=== PATIENT | female | born 1945 | race Caucasian/White ===

== ENCOUNTER → 2017-09-09 | Outpatient (CLI) | payer MEDICARE, OTHER ==
[~2017-09-09] MED LIST: LEVO25TA55 PO
[2017-09-09 12:49] LABS: CREATININE 0.8 mg/dL (0.6-1.0); GFR 70.7
[2017-09-09 23:12] LABS: VITAMIN D25(OH)TOTAL 24.7 ng/mL (30.0-100.0)
== END | disposition home or self-care (01) ==
LOC: LAB 12:14
PROVIDERS: ATTEND Psychiatry & Neurology Neurology
DX: R20.2 Paresthesia of skin (principal)
CPT/HCPCS: 36415; 82306; 82310; 82565; 82607; 84520; 86141

== ENCOUNTER → 2022-01-21 | Outpatient (CLI) | payer MEDICARE, OTHER ==
[~2022-01-21] MED LIST changes: +ATOR40TA59 PO; +CELE200C PO; +GABA600T7 PO; +LOSA1TAB19 PO
[2022-01-21 09:27] LABS: BASO % 1 % (0-3); EOS # 0.1 x10^3/uL (0.0-0.7); EOS % 2 % (0-3); HEMATOCRIT 38.2 % (36.0-47.0); HEMOGLOBIN 12.3 g/dL (12.0-15.5); LYMPH # 0.7 x10^3/uL (1.0-4.8); LYMPH % 11 % (24-48); MEAN CORPUSCULAR HEMOGLOBIN 30 pg (25-35); MEAN CORPUSCULAR HGB CONC 32 g/dL (31-37); MEAN CORPUSCULAR VOLUME 92 fL (79-100); MONO # 0.6 x10^3/uL (0.0-1.1); MONO % 9 % (0-9); NEUT # 5.2 x10^3/uL (1.8-7.7); NEUT % 77 % (31-73); PLATELET COUNT 284 x10^3/uL (140-400); RED BLOOD COUNT 4.15 x10^6/uL (3.50-5.40); RED CELL DISTRIBUTION WIDTH 13.9 % (11.5-14.5); WHITE BLOOD COUNT 6.7 x10^3/uL (4.0-11.0)
[2022-01-21 09:40] LABS: PROTHROMBIN TIME PATIENT 13.6 SEC (11.7-14.0)
[2022-01-21 09:50] LABS: ALBUMIN 3.9 g/dL (3.4-5.0); CALCIUM 9.3 mg/dL (8.5-10.1); GFR 54.1; POTASSIUM 4.5 mmol/L (3.5-5.1)
--- NOTE | 2022-01-21 12:43 | EKG ---
[facility] [address] [place] [address] Test Date: 2022-01-21 Test Time: 12:39:06 Pat Name: CRISTI MUÑOZ Department: Room: Gender: F [employer]: JG : [id number] Requested By: ROD BARNETT Order Number: [id number] Reading MD: Dung Martinez Measurements Intervals [place] Rate: 72 P: 27 NE: 156 QRS: 4 QRSD: 88 T: 14 QT: 386 QTc: 424 Interpretive Statements SINUS RHYTHM ATRIAL PREMATURE COMPLEX(ES) OTHERWISE NORMAL ECG Electronically Signed On 01-22-2022 15:41:28 CDT by Dung Martinez
--- NOTE | 2022-01-21 14:00 | RAD ---
EXAM: Chest, 2 views. HISTORY: Preoperative evaluation. COMPARISON: None. FINDINGS: 2 views of the chest are obtained. There is no infiltrate, pleural effusion or pneumothorax . The heart is normal in size. There is lumbar fusion instrumentation at the inferior margin of the f [id number]. There is degenerative change at the lower thoracic levels. IMPRESSION: No acute pulmonary finding. Electronically signed by: Kori Reis MD (01/21/2022 1:58 PM) [id number]
[2022-01-22 03:17] LABS: HEMOGLOBIN A1C 5.5 % (4.8-5.6)
== END ==
LOC: SURGPAT 12:42
PROVIDERS: ATTEND Orthopaedic Surgery
DX: Z01.818 Encounter for other preprocedural examination (principal); I10 Essential (primary) hypertension; M17.0 Bilateral primary osteoarthritis of knee; M47.814 Spondylosis without myelopathy or radiculopathy, thoracic region
CPT/HCPCS: 36415; 71046; 80048; 82040; 82306; 83036; 85025; 85610; 85651; 85730; 87641; 93005

== ENCOUNTER 2022-02-11 07:25 | Inpatient (IN) | payer MEDICARE, OTHER ==
[2022-01-23 12:56] VITALS: BP 135/83
[~2022-02-11] VITALS: Ht 167.6 cm; Wt 97.0 kg
[2022-02-11] VITALS (12 sets, daily range): BP systolic 99–131; BP diastolic 55–85
[~2022-02-11 07:25] MED LIST changes: +ACETAMINOPHEN 500 MG TABLET PO PRN; +GABAPENTIN 300 MG CAPSULE. PO PRN; +HYDROmorphone 2 MG/ML INJ. IVP PRN; +IV RINGERS,LACTATED 1000ML 1,000 ML IV SCH; +MELOXICAM 7.5 MG TABLET PO PRN; +MORPHINE SULFATE 2 MG/ML INJ. IVP PRN; +PROCHLORPERAZINE 10 MG/2 ML VIAL. IVP PRN; +TRANEXAMIC ACID in NS IVPB 50 ML INJ ONE; +TV=62ml MORPHINE 5 MG, KETOROLAC 30 MG, ROPIV, EPI INT ART ONE; +fentaNYL PF VIAL 100 MCG/2 ML VIAL IVP PRN
[2022-02-11] MEDS ORDERED: TRANEXAMIC ACID in NS IVPB 50 ML INJ ONE (08:00)
[2022-02-11] MEDS ORDERED: ONDANSETRON PF 4 MG/2 ML VIAL. ONE (08:08)
[2022-02-11] MEDS ORDERED: LIDOCAINE 2% PF 5 ML VIAL. ONE (08:08)
[2022-02-11] MEDS ORDERED: PROPOFOL 10 MG/ML (20ML) VIAL. IV ONE (08:08)
[2022-02-11] MEDS ORDERED: ROCURONIUM 50 MG/5 ML VIAL. ONE (08:08)
[2022-02-11] MEDS ORDERED: DEXAMETHASONE SOD PHOS 4 MG/ML VIAL ONE (08:08)
[2022-02-11] MEDS ORDERED: NEOSTIGMINE METHYLSULFATE 5 MG/5 ML SYRINGE. ONE (08:09)
[2022-02-11] MEDS ORDERED: MIDAZOLAM HCL/PF 2 MG/2 ML VIAL. ONE (08:09)
[2022-02-11] MEDS ORDERED: fentaNYL PF VIAL 100 MCG/2 ML VIAL ONE (08:09)
[2022-02-11] MEDS ORDERED: GLYCOPYRROLATE 1 MG/5 ML VIAL. ONE (08:10)
[2022-02-11] MEDS ORDERED: SEVOFLURANE 61 TO 120 MINUTES. IH ONE (08:18)
[2022-02-11] MEDS ORDERED: TRANEXAMIC ACID 1,000 MG/10 ML VIAL. ONE (08:43)
[2022-02-11] MEDS ORDERED: TRANEXAMIC ACID in NS IVPB 50 ML ONE (08:43)
[2022-02-11] MEDS ORDERED: HYDROmorphone 2 MG/ML INJ. ONE (09:40)
[2022-02-11] MEDS ORDERED: MORPHINE SULFATE 2 MG/ML INJ. IVP PRN (10:30)
[2022-02-11] MEDS ORDERED: METOCLOPRAMIDE HCL 10 MG/2 ML VIAL. IVP PRN (10:30)
[2022-02-11] MEDS ORDERED: 0.9 % SODIUM CHLORIDE 10 ML DISP.SYRIN. IV PRN (10:30)
[2022-02-11] MEDS ORDERED: fentaNYL PF VIAL 100 MCG/2 ML VIAL IVP PRN (10:30)
[2022-02-11] MEDS ORDERED: IV DEXTROSE 5% 250 ML BAG. IV PRN (10:30)
[2022-02-11] MEDS ORDERED: DEXTROSE 50% 25 GM / 50ML DISP.SYRIN. IV PRN (10:30)
[2022-02-11] MEDS ORDERED: diphenhydrAMINE 50 MG/ML VIAL IVP PRN (10:30)
[2022-02-11] MEDS ORDERED: oxyCODONE IR 5 MG TABLET PO PRN (10:30)
[2022-02-11] MEDS ORDERED: ZOLPIDEM 5 MG TABLET. PO PRN (10:30)
[2022-02-11] MEDS ORDERED: PROCHLORPERAZINE 5 MG TABLET. PO PRN (10:30)
[2022-02-11] MEDS ORDERED: CALCIUM CARBONATE 500 MG TAB.CHEW PO PRN (10:30)
--- NOTE | 2022-02-11 10:30 | PDOC4 ---
OPERATIVE NOTE Date: Date: Feb 11, 2022 Pre-Op Diagnosis: Severe degenerative joint disease left knee Post-Op Diagnosis: Same Procedure Performed: Left total knee arthroplasty with anchor placement patella tendon Surgeon: Rianna Anesthesia Type: General Blood Loss: 50 cc Specimans Obtained: Bone and soft tissue left knee Findings: Prior to closure of the knee replacement there was noted to be a small avulsion of the tibial insertion of the patella tendon approximately 20 to 25% therefore for full repair 1 four 5 suture anchor was placed within the area of the insertion of the tibial tendon this was tied. Following this the normal closure was performed. Complications: Small avulsion patella tendon 20% ROD BARNETT Jr. DO Feb 11, 2022 10:30
[2022-02-11] MEDS ORDERED: SCOPOLAMINE 1.5MG PATCH. TD ONE ×2 (11:30→13:13)
[2022-02-11] MEDS ORDERED: PROCHLORPERAZINE 10 MG/2 ML VIAL. ONE (11:31)
[2022-02-11] MEDS: ONDANSETRON ODT 4 MG TAB.RAPDIS. PO SCH ×3 (12:00→23:28)
[2022-02-11] MEDS: ONDANSETRON PF 4 MG/2 ML VIAL. IVP SCH ×4 (12:00→23:28)
--- NOTE | 2022-02-11 12:01 | RAD ---
Left Knee: 02/11/2022 10:37 AM. Reason for study: Postoperative. Comparison: None. Technique: Two views of the left knee are obtained. Findings: There are findings consistent with recent left total knee arthroplasty, with hardware in good alignme nt and position. Immediate postsurgical changes within the regional soft tissues are noted. No compli cations are evident. Vascular calcifications are noted. Impression: Status post left total knee arthroplasty. Electronically signed by: Catherine Montilla MD (02/11/2022 11:59 AM) [id number]
--- NOTE | 2022-02-11 12:36 | HP ---
DATE OF SERVICE: 02/11/2022 ADMIT DATE: 02/11/2022 PREOPERATIVE HISTORY AND PHYSICAL REASON FOR EVALUATION: Preop for left total knee arthroplasty. BRIEF HISTORY: The patient is currently a 76-year-old female who complains of significant left knee pain. She actually has bilateral knee pain, but is worse on the left than on the right. She has already undergone ice, elevation, also has been under viscosupplementation, steroid injections, etc. Nothing is helping significantly at this point. She has already had bilateral hip replacements and now has significant pain and issues with her left knee causing problems with activities of daily living. REVIEW OF SYSTEMS: Unremarkable other than her current persistent bilateral knee pain. PAST MEDICAL HISTORY: Remarkable for hypertension, hypothyroidism, diffuse degenerative joint disease, dyslipidemia, mild carpal tunnel, anxiety and glaucoma. PAST SURGICAL HISTORY: , hip replacement, left and right lumbar decompression and a left toe surgery. FAMILY HISTORY: Remarkable for cancer as well as HI. SOCIAL HISTORY: The patient has never been a tobacco user of any kind. No alcohol use at all at this point. MEDICATIONS: Include Losartan/HCTZ, Arvostatin, Celebrex, gabapentin, levothyroxine, sodium. MEDICATION ALLERGIES: None. PHYSICAL EXAMINATION: Today, the patient is 200 pounds and is 66 inches tall. She does have bilateral knee pain with examination, there is more swelling in the left knee than the right knee. She has full extension on the right. There is 5 degrees lacking full extension on the left and evaluation of 115 degrees of flexion on the left. No instability is noted in the varus, valgus or AP plane. There is apprehension of the patellofemoral joint, although it does track appropriately at this point. There are no significant changes in evaluation of the knees far as atrophy of musculature bilaterally. Distal neurovascular status is fully intact. IMPRESSION: Degenerative joint disease, bilateral; left greater than right. PLAN: At this time, I have already gone over the risks, complications as well as benefits and expectations of surgery, postoperative protocol and followup. We have done that again. We will proceed with left total knee replacement when she is talked with anesthesia and is ready to be undergoing the procedure. SABA/RASTA DR: Obed TID: [id number]
--- NOTE | 2022-02-11 14:42 | OP ---
DATE OF SURGERY: 02/11/2022 PREOPERATIVE DIAGNOSIS: Severe degenerative joint disease, left knee. POSTOPERATIVE DIAGNOSIS: Severe degenerative joint disease, left knee. PROCEDURE: Left total knee arthroplasty. SURGEON: Nathaniel Blanca Jr, DO SONOGRAPHY TECHNICIAN: Vish Marc. ANESTHESIA: General. COMPLICATIONS: None. ESTIMATED BLOOD LOSS: 50 mL. COMPONENTS: A Gasper cemented left total knee arthroplasty with a 9 mm tibial polyethylene and a size 4 femur, size 4 tibia and then a size 32 patella. DESCRIPTION OF PROCEDURE: The patient was taken to the operative suite, given a general anesthetic. Left lower extremity was then prepped and draped in a sterile fashion. Incision was made through skin and subcutaneous tissues down to the extensor mechanism. Superficial bleeding was coagulated using a Bovie knife. A medial parapatellar incision was then made. After exposure, there was noted to be severe degenerative joint disease in all compartments of the knee. The patella was then everted, measured and cut to the appropriate size, which was a 32. This was measured appropriately. The drill holes were made through the guide for the component. The knee was then taken into a flexed position. Retractors were placed medially and laterally. The F1 guide was then placed on the distal femur. A drill was used for the site for the cartilage removal and then using a curved curette, the cartilage was removed from the distal femur and then the F2 guide was placed in this position. The drill was placed through the F2 guide on the medial and lateral femoral condyles and held with pins. This was also held for the distal cut on the proximal aspect of the femur anteriorly with 2 drill pins followed by a locking pin as well. The cut was then made in the distal femur. This was noted to be a good flush cut. The pins were then removed from this components trial and then the pins were placed in the femoral sites on the medial and lateral femoral condyles. The next guide was then placed on the distal femur and held flush well. Two more pins were placed and then the anterior and posterior chamfer cuts and drill holes were made at this point. Then, these guides were removed. The final femoral guide was then put in place and held appropriately where the finishing cuts were made along the femoral condyle medially and laterally and then this was removed. Attention was then directed to the tibia. The remnants of the medial and lateral menisci as well as the ACL were removed. The PCL remained completely intact at this point. After retracting medially, laterally and posteriorly, the tibial guide was placed in appropriate position and again, a curette was used to remove the remaining cartilage on the proximal tibia. Tibial guide was then held with pins, two straight pins and then one locking pin and then the cut was made for the tibia. This was released of its soft tissue and removed in its entirety and the trials were placed on the femur and tibia with a 6A tibial tray insert. As this was trialled, this was noted to be very stable throughout the arc of motion. This was stable in flexion and equal in flexion and extension throughout the arc of motion. There was no instability noted at any point. This was marked for rotation on the tibial side of the joint and after this was held with pins, the drill and the keel were placed the appropriate depth for this. This was then copiously irrigated on the back table while cement was being mixed. After this was suctioned dry, cement was placed on cut surfaces. The tibia was impacted first, followed by the femur. This was held with the trial polyethylene in extension until hardening of cement and cement was placed on the patella, which was held with a patellar clamp until hardening of cement. After excess cement was then removed, this was taken through motion. This was noted to be the best stable situation; therefore, the trials were removed and the actual medial 6 was placed and the lateral A was placed at this point. This was noted again to be stable; therefore, tourniquet was deflated. No excessive bleeding was noted. The medial parapatellar incision was then closed using the running locking barbed suture. Then, this was taken through range of motion and noted to be sealed off completely. The superficial tissues and skin were reapproximated. Sterile dressing was applied. This was all done after local was placed within the depths of the capsular region of the knee. The patient was then taken from the operative bed to the postoperative bed, taken to the PACU in stable condition. INDRA/MARK/EDYTA DR: Obed TID: [id number]
[2022-02-11] MEDS: FERROUS SULFATE 325 MG TABLET. PO SCH (17:49)
[2022-02-11] MEDS: IV NORMAL SALINE 1000ML BAG 1,000 ML IV SCH (17:51)
--- NOTE | 2022-02-11 19:09 | PDOC1 ---
History and Physical Date of Admission Date of Admission DATE: 02/11/22 TIME: 19:05 Source Source: Chart review, Patient History of Present Illness History of Present Illness Admit for complaint of significant left knee pain. s/p other modalities without improvment, steroid injections failed labs 01/21 Dr. Blanca, preop done, she feels ok after surg, nopain unless she moves P MEDICATIONS: Include Losartan/HCTZ, Arvostatin, Celebrex, gabapentin, levothyroxine, sodium. MEDICATION ALLERGIES: None. PHYSICAL EXAMINATION: Today, the patient is 200 pounds and is 66 inches tall. She does have bilateral knee pain with examination, there is more swelling in the left knee than the right knee. She has full extension on the right. There is 5 degrees lacking full extension on the left and evaluation of 115 degrees of flexion on the left. No instability is noted in the varus, valgus or AP plane. There is apprehension of the patellofemoral joint, although it does track appropriately at this point. There are no significant changes in evaluation of the knees far as atrophy of musculature bilaterally. Distal neurovascular status is fully intact. IMPRESSION: Degenerative joint disease, bilateral; left greater than right. PLAN: At this time, I have already gone over the risks, complications as well as benefits and expectations of surgery, postoperative protocol and followup. We have done that again. We will proceed with left total knee replacement when she is talked with anesthesia and is ready to be undergoing the procedure. Past Medical History Past Medical History hypertension, hypothyroidism, diffuse degenerative joint disease, dyslipidemia, mild carpal tunnel, anxiety and glaucoma. Past Surgical History Past Surgical History bilateral hip replacements Past Surgical History: Family History Family History: Cancer, Heart Disease Social History Smoke: No ALCOHOL: none Drugs: None Current Medications Current Medications Current Medications Fentanyl Citrate (Fentanyl 2ml Vial) 25 mcg PRN Q5MIN PRN IVP MILD PAIN 1-3; Start 02/11/22 at 06:00; Stop 02/11/22 at 17:45; Status DC Fentanyl Citrate (Fentanyl 2ml Vial) 50 mcg PRN Q5MIN PRN IVP MODERATE PAIN 4- 6; Start 02/11/22 at 06:00; Stop 02/11/22 at 17:45; Status DC Morphine Sulfate (Morphine Sulfate) 1 mg PRN Q10MIN PRN IVP SEVERE PAIN 7-10; Start 02/11/22 at 06:00; Stop 02/11/22 at 17:46; Status DC Ringer's Solution 1,000 ml @ 30 mls/hr Q24H IV Last administered on 02/11/22at 08:28; Start 02/11/22 at 06:00; Stop 02/11/22 at 17:59; Status DC Hydromorphone HCl (Dilaudid) 0.5 mg PRN Q10MIN PRN IVP SEVERE PAIN 7-10, 2nd CHOICE; Start 02/11/22 at 06:00; Stop 02/11/22 at 17:46; Status DC Prochlorperazine Edisylate (Compazine) 5 mg PACU PRN PRN IVP NAUSEA, MRX1 Last administered on 02/11/22at 11:35; Start 02/11/22 at 06:00; Stop 02/11/22 at 17:46; Status DC Morphine Sulfate 5 mg/Ketorolac Tromethamine 30 mg/Ropivacaine 60 ml/Epinephrine HCl 0.5 mg/ Miscellaneous 63 ml @ 63 mls/hr 1X PERIOP ONCE INT ART Last administered on 02/11/22at 09:35; Start 02/11/22 at 06:00; Stop 02/11/22 at 06:59; Status DC Tranexamic Acid 50 ml @ 50 mls/hr 1X PERIOP ONCE INJ ; Start 02/11/22 at 06:00; Stop 02/11/22 at 06:59; Status DC Tranexamic Acid 50 ml @ 50 mls/hr 1X PERIOP ONCE INJ ; Start 02/11/22 at 08:00; Stop 02/11/22 at 08:59; Status DC Meloxicam (Mobic) 15 mg 1X PREOP PRN PO PRIOR TO PROCEDURE Last administered on 02/11/22at 08:28; Start 02/11/22 at 06:00; Stop 02/11/22 at 18:00; Status DC Gabapentin (Neurontin) 300 mg 1X PREOP PRN PO PRIOR TO PROCEDURE Last administered on 02/11/22at 08:28; Start 02/11/22 at 06:00; Stop 02/11/22 at 18:00; Status DC Acetaminophen (Tylenol) 1,000 mg 1X PREOP PRN PO PRIOR TO PROCEDURE Last administered on 02/11/22at 08:29; Start 02/11/22 at 06:00; Stop 02/11/22 at 18:00; Status DC Cefazolin Sodium/ Dextrose 50 ml @ 100 mls/hr 1X PREOP PRN IV PRIOR TO PROCEDURE Last administered on 02/11/22at 09:25; Start 02/11/22 at 06:00; Stop 02/11/22 at 18:00; Status DC Propofol (Diprivan) 200 mg STK-MED ONCE IV ; Start 02/11/22 at 08:08; Stop 02/11/22 at 08:08; Status DC Dexamethasone Sodium Phosphate (Decadron) 4 mg STK-MED ONCE .ROUTE ; Start 02/11/22 at 08:08; Stop 02/11/22 at 08:08; Status DC Lidocaine HCl (Lidocaine Pf 2% Vial) 5 ml STK-MED ONCE .ROUTE ; Start 02/11/22 at 08:08; Stop 02/11/22 at 08:08; Status DC Ondansetron HCl (Zofran) 4 mg STK-MED ONCE .ROUTE ; Start 02/11/22 at 08:08; Stop 02/11/22 at 08:09; Status DC Rocuronium [place] (Zemuron) 50 mg STK-MED ONCE .ROUTE ; Start 02/11/22 at 08:08; Stop 02/11/22 at 08:09; Status DC Neostigmine [place] (Neostigmine Methylsulfate) 5 mg STK-MED ONCE .ROUTE ; Start 02/11/22 at 08:09; Stop 02/11/22 at 08:09; Status DC Fentanyl Citrate (Fentanyl 2ml Vial) 100 mcg STK-MED ONCE .ROUTE ; Start 02/11/22 at 08:09; Stop 02/11/22 at 08:09; Status DC Midazolam HCl (Versed) 2 mg STK-MED ONCE .ROUTE ; Start 02/11/22 at 08:09; Stop 02/11/22 at 08:10; Status DC Glycopyrrolate (Robinul) 1 mg STK-MED ONCE .ROUTE ; Start 02/11/22 at 08:10; Stop 02/11/22 at 08:10; Status DC Sevoflurane (Ultane) 60 ml STK-MED ONCE IH ; Start 02/11/22 at 08:18; Stop 02/11/22 at 08:19; Status DC Tranexamic Acid 50 ml @ As Directed STK-MED ONCE .ROUTE Last administered on 02/11/22at 09:35; Start 02/11/22 at 08:43; Stop 02/11/22 at 08:44; Status DC Tranexamic Acid (Cyklokapron) 1,000 mg STK-MED ONCE .ROUTE ; Start 02/11/22 at 08:43; Stop 02/11/22 at 08:44; Status DC Hydromorphone HCl (Dilaudid) 2 mg STK-MED ONCE .ROUTE ; Start 02/11/22 at 09:40; Stop 02/11/22 at 09:40; Status DC Morphine Sulfate (Morphine Sulfate) 2 mg PRN Q1HR PRN IVP PAIN; Start 02/11/22 at 10:30 Fentanyl Citrate (Fentanyl 2ml Vial) 25 mcg PRN Q1HR PRN IVP PAIN, 2nd CHOICE; Start 02/11/22 at 10:30 Diphenhydramine HCl (Benadryl) 25 mg PRN Q6HRS PRN IVP ITCHING; Start 02/11/22 at 10:30 Multivitamins (Thera M Plus) 1 tab DAILY PO ; Start 02/12/22 at 09:00 Senna/Docusate Sodium (Senna Plus) 1 tab DAILY PO ; Start 02/12/22 at 09:00 Ferrous Sulfate (Feosol) 325 mg BIDWMEALS PO Last administered on 02/11/22at 17:49; Start 02/11/22 at 17:00 Sodium Chloride 1,000 ml @ 40 mls/hr Q24H IV Last administered on 02/11/22at 17: 51; Start 02/11/22 at 10:30 Prochlorperazine Maleate (Compazine) 10 mg PRN Q4HRS PRN PO Nausea/vomiting, 2nd choice; Start 02/11/22 at 10:30 Metoclopramide HCl (Reglan Vial) 10 mg PRN Q4HRS PRN IVP NAUSEA/VOMITING, 3rd CHOICE; Start 02/11/22 at 10:30 Magnesium Hydroxide (Milk Of Magnesia) 2,400 mg 1X PRN PRN PO CONSTIPATION; Start 02/12/22 at 06:00; Stop 02/13/22 at 05:59 Bisacodyl (Dulcolax Supp) 10 mg 1X PRN PRN [place] CONSTIPATION; Start 02/12/22 at 16:00; Stop 02/13/22 at 15:59 Zolpidem Tartrate (Ambien) 5 mg PRN QHS PRN PO INSOMNIA, MAY REPEAT IN 1HR; Start 02/11/22 at 10:30 Calcium Carbonate/ Glycine (Tums) 500 mg PRN QID PRN PO INDIGESTION; Start 02/11/22 at 10:30 Sodium Chloride (Normal Saline Flush) 10 ml QSHIFT PRN IV AFTER MEDS AND BLOOD DRAWS; Start 02/11/22 at 10:30 Acetaminophen (Tylenol) 1,000 mg Q6H PO ; Start 02/12/22 at 09:00; Stop 02/11/22 at 17:41; Status DC Tramadol HCl (Ultram) 25 mg Q6H PO ; Start 02/12/22 at 06:00 Gabapentin (Neurontin) 100 mg Q8HRS PO ; Start 02/12/22 at 06:00; Stop 02/11/22 at 17:44; Status DC Ondansetron HCl (Zofran) 4 mg Q6HRS IVP Last administered on 02/11/22at 18:32; Start 02/11/22 at 12:00; Stop 02/12/22 at 06:01 Ondansetron HCl (Zofran Odt) 4 mg Q6HRS PO ; Start 02/11/22 at 12:00; Stop 02/12/22 at 06:01 Ondansetron HCl (Zofran) 4 mg PRN Q6HRS PRN IVP Nausea/vomiting, 1st choice; Start 02/12/22 at 12:00 Ondansetron HCl (Zofran Odt) 4 mg PRN Q6HRS PRN PO Nausea/vomiting, 1st choice; Start 02/12/22 at 12:00 Oxycodone HCl (Roxicodone) 5 mg PRN Q4HRS PRN PO Pain score 4-6; Start 02/11/22 at 10:30 Dextrose (Dextrose 50%-Water Syringe) 12.5 gm PRN Q15MIN PRN IV SEE COMMENTS; Start 02/11/22 at 10:30 Dextrose (Iv Dextrose 5%) 250 ml PRN Q15MIN PRN IV SEE COMMENTS; Start 02/11/22 at 10:30 Cefazolin Sodium/ Dextrose 50 ml @ 100 mls/hr Q6H IV ; Start 02/11/22 at 14:00; Stop 02/12/22 at 02:29; Status Cancel Aspirin (Estrella Aspirin) 325 mg DAILYWBKFT PO ; Start 02/12/22 at 08:00 Cefazolin Sodium/ Dextrose 50 ml @ 100 mls/hr Q6H IV Last administered on 02/11/22at 14:12; Start 02/11/22 at 14:00; Stop 02/12/22 at 02:29 Scopolamine (Transderm-Scop) 1 patch 1X ONCE TD Last administered on 02/11/22at 13:16; Start 02/11/22 at 11:30; Stop 02/11/22 at 11:33; Status DC Prochlorperazine Edisylate (Compazine) 10 mg STK-MED ONCE .ROUTE ; Start 02/11/22 at 11:31; Stop 02/11/22 at 11:31; Status DC Scopolamine (Transderm-Scop) 1 patch STK-MED ONCE TD ; Start 02/11/22 at 13:13; Stop 02/11/22 at 13:13; Status DC Atorvastatin Calcium (Lipitor) 40 mg HS PO ; Start 02/11/22 at 21:00 Levothyroxine Sodium (Synthroid) 25 mcg DAILY06 PO ; Start 02/12/22 at 06:00 Gabapentin (Neurontin) 300 mg DAILY08 PO ; Start 02/12/22 at 08:00 Gabapentin (Neurontin) 900 mg HS PO ; Start 02/11/22 at 21:00 Losartan Potassium (Cozaar) 50 mg DAILY PO ; Start 02/12/22 at 09:00 Acetaminophen (Tylenol) 1,000 mg TID PO ; Start 02/11/22 at 21:00 Active Scripts Active Reported Gabapentin 600 Mg Tablet 900 Mg PO HS Gabapentin 600 Mg Tablet 300 Mg PO DAILY08 Celebrex (Celecoxib) 200 Mg Capsule 200 Mg PO BID 30 Days Atorvastatin Calcium 40 Mg Tablet 40 Mg PO HS Losartan-Hctz 50-12.5 Mg Tab (Losartan/Hydrochlorothiazide) 1 Each Tablet 1 Each PO DAILY Synthroid (Levothyroxine Sodium) 25 Mcg Tablet 1 Tab PO DAILY Allergies Allergies: Coded Allergies: No Known Drug Allergies (Unverified , 02/11/22) ROS General: No: Chills, Night Sweats, Fatigue, Malaise, Appetite, Other PSYCHOLOGICAL ROS: No: Anxiety, Behavioral Disorder, Concentration difficultie, Decreased libido, Depression, Disorientation, Hallucinations, Hostility, Irritablity, Memory difficulties, Mood Swings, Obsessive thoughts, Physical abuse, Sexual abuse, Sleep disturbances, Suicidal ideation, Other Eyes: No Blurry vision, No Decreased vision, No Double vision, No Dry eyes, No Excessive tearing, No Eye Pain, No Itchy Eyes, No Loss of vision, No Photophobia, No Scotomata, No Uses contacts, No Uses glasses, No Other HEENT: No: Heacaches, Visual Changes, Hearing change, Nasal congestion, Nasal discharge, Oral lesions, Sinus pain, Sore Throat, Epistaxis, Sneezing, Snoring, Tinnitus, Vertigo, Vocal changes, Other Respiratory: No: Cough, Hemoptysis, Orthopnea, Pleuritic Pain, Shortness of breath, SOB with excertion, Sputum Changes, Stridor, Tachypnea, Wheezing, Other Cardiovascular: No Chest Pain, No Palpitations, No Orthopnea, No Paroxysmal Noc. Dyspnea, No Edema, No Lt Headedness, No Other Gastrointestinal: No Nausea, No Vomiting, No Abdominal Pain, No Diarrhea, No Constipation, No Melena, No Hematochezia, No Other Musculoskeletal: Yes Gait Disturbance, Yes Joint Pain, Yes Joint Stiffness; No Joint Swelling, No Muscle Pain, No Muscular Weakness, No Pain In:, No Swelling In:, No Other Neurological: No Behavorial Changes, No Bowel/Bladder ControlChng, No Confusion, No Dizziness, No Headaches, No Impaired Coord/balance, No Memory Loss, No Numbness/Tingling, No Seizures, No Speech Problems, No Tremors, No Visual Changes, No Weakness, No Other Skin: No Dry Skin, No Eczema, No Hair Changes, No Lumps, No Mole Changes, No Mottling, No Nail Changes, No Pruritus, No Rash, No Skin Lesion Changes, No Other, No Acne Physical Exam General: Alert, Oriented X3, Cooperative HEENT: Atraumatic, PERRLA Lungs: Clear to auscultation Heart: S1S2, RRR, no murmurs Abdomen: Normal bowel sounds, Soft Extremities: No cyanosis Skin: No rashes, No breakdown Neuro: Normal gait, Sensation intact Psych/Mental Status: Mental status NL, Mood NL Vitals Vitals Vital Signs Date Time Temp Pulse Resp B/P (MAP) Pulse Ox O2 Delivery O2 Flow Rate FiO2 02/11/22 17:30 98.2 97 16 131/71 (91) 97 Nasal Cannula 2.0 98.2 Labs Labs Laboratory Tests Test 02/11/22 07:50 POC SARS CoV-2 Antigen Negative (NEGATIVE) Laboratory Tests Test 02/11/22 07:50 POC SARS CoV-2 Antigen Negative (NEGATIVE) VTE Prophylaxis Ordered VTE Prophylaxis Devices: Yes VTE Pharmacological Prophylaxi: Yes Assessment/Plan Assessment/Plan operative day, left total knee obese, BMI 35 htn hypothyroid dyslipidemia, anxiety glaucoma. home meds, pain control will follow Justifications for Admission Other Justification ZURDO MERCEDES MD Feb 11, 2022 19:09
[2022-02-11] MEDS: ACETAMINOPHEN 500 MG TABLET PO SCH (19:58)
[2022-02-11] MEDS: GABAPENTIN 300 MG CAPSULE. PO SCH (19:59)
[2022-02-11] MEDS: ATORVASTATIN CALCIUM 40 MG TABLET. PO SCH (19:59)
[2022-02-12 03:00] VITALS: BP 107/54
[2022-02-12] MEDS: traMADol 50 MG TABLET PO SCH ×3 (05:43→17:28)
[2022-02-12] MEDS: ONDANSETRON PF 4 MG/2 ML VIAL. IVP SCH (05:43)
[2022-02-12] MEDS: LEVOTHYROXINE 25 MCG TABLET. PO SCH (05:43)
[2022-02-12] MEDS: ONDANSETRON ODT 4 MG TAB.RAPDIS. PO SCH (05:45)
[2022-02-12] MEDS ORDERED: MAGNESIUM HYDROXIDE 2,400 MG/30 ML ORAL.SUSP. PO PRN (06:00)
[2022-02-12] MEDS ORDERED: GABAPENTIN 100 MG CAPSULE. PO SCH (06:00)
[2022-02-12 07:15] VITALS: BP 125/72
[2022-02-12] MEDS ORDERED: ACETAMINOPHEN 500 MG TABLET PO SCH (09:00)
[2022-02-12] MEDS: GABAPENTIN 300 MG CAPSULE. PO SCH ×2 (09:02→21:33)
[2022-02-12] MEDS: FERROUS SULFATE 325 MG TABLET. PO SCH ×2 (09:02→17:28)
[2022-02-12] MEDS: SENNOSIDES/DOCUSATE 8.6/50MG TABLET. PO SCH (09:02)
[2022-02-12] MEDS: ASPIRIN 325 MG TABLET PO SCH (09:02)
[2022-02-12] MEDS: ACETAMINOPHEN 500 MG TABLET PO SCH ×3 (09:03→21:32)
[2022-02-12] MEDS: MULTIVITAMIN with MINERAL TABLET. PO SCH (09:03)
[2022-02-12] MEDS: LOSARTAN POTASSIUM 50 MG TABLET. PO SCH (09:03)
--- NOTE | 2022-02-12 09:45 | PDOC ---
[facility] PROGRESS NOTE Date of Service DOS: DATE: 02/12/22 TIME: 09:38 Chief Complaint Chief Complaint CC: Operative day 2, left total knee arthroplasty PMH: Obese, BMI 35 HTN Hypothyroid Dyslipidemia Anxiety Glaucoma. History of Present Illness History of Present Illness 02/12/22: Patient seen and examined Chart reviewed Case discussed with RN Case discussed with case management Nausea improved with zofran Vitals/I&O Vitals/I&O: Vital Signs Date Time Temp Pulse Resp B/P (MAP) Pulse Ox O2 Delivery O2 Flow Rate FiO2 02/12/22 09:03 80 125/72 02/12/22 07:15 98.1 20 95 Room Air 98.1 02/11/22 17:30 2.0 I & O 02/11/22 02/11/22 02/12/22 15:00 23:00 07:00 Intake Total 1700 ml 200 ml 250 ml Output Total 50 ml Balance 1650 ml 200 ml 250 ml Physical Exam General: Alert, Oriented X3, Cooperative Abdomen: Normal bowel sounds, Soft Extremities: No cyanosis Skin: No rashes, No breakdown Assessment and Plan Assessmemt and Plan Operative day 2, left total knee Obese, BMI 35 HTN Hypothyroid Dyslipidemia, Anxiety Glaucoma. Home meds Pain meds PRN Zofran PRN Home PT DVT prophylaxis Probable discharge tomorrow Full code Comment Review of Relevant I have reviewed the following items vitor (where applicable) has been applied. Medications: Current Medications Medications (Trade) Dose Ordered Sig/Maura Route PRN Reason Start Time Stop Time Status Last Admin Dose Admin Multivitamins (Thera M Plus) 1 tab DAILY PO 02/12/22 09:00 02/12/22 09:03 Senna/Docusate Sodium (Senna Plus) 1 tab DAILY PO 02/12/22 09:00 02/12/22 09:02 Ferrous Sulfate (Feosol) 325 mg BIDWMEALS PO 02/11/22 17:00 02/12/22 09:02 Sodium Chloride 1,000 ml @ 40 mls/hr Q24H IV 02/11/22 10:30 02/11/22 17:51 Tramadol HCl (Ultram) 25 mg Q6H PO 02/12/22 06:00 02/12/22 05:43 Ondansetron HCl (Zofran) 4 mg Q6HRS IVP 02/11/22 12:00 02/12/22 06:01 DC 02/11/22 18:32 Aspirin (Estrella Aspirin) 325 mg DAILYWBKFT PO 02/12/22 08:00 02/12/22 09:02 Cefazolin Sodium/ Dextrose 50 ml @ 100 mls/hr Q6H IV 02/11/22 14:00 02/12/22 02:29 DC 02/12/22 02:14 Scopolamine (Transderm-Scop) 1 patch 1X ONCE TD 02/11/22 11:30 02/11/22 11:33 DC 02/11/22 13:16 Atorvastatin Calcium (Lipitor) 40 mg HS PO 02/11/22 21:00 02/11/22 19:59 Levothyroxine Sodium (Synthroid) 25 mcg DAILY06 PO 02/12/22 06:00 02/12/22 05:43 Gabapentin (Neurontin) 300 mg DAILY08 PO 02/12/22 08:00 02/12/22 09:02 Gabapentin (Neurontin) 900 mg HS PO 02/11/22 21:00 02/11/22 19:59 Losartan Potassium (Cozaar) 50 mg DAILY PO 02/12/22 09:00 02/12/22 09:03 Acetaminophen (Tylenol) 1,000 mg TID PO 02/11/22 21:00 02/12/22 09:03 Justifications for Admission Other Justification CHRISTINA COREA III DO Feb 12, 2022 09:45
[2022-02-12] MEDS: IV NORMAL SALINE 1000ML BAG 1,000 ML IV SCH (10:30)
[2022-02-12 11:13] VITALS: BP 110/69
[2022-02-12] MEDS ORDERED: ONDANSETRON ODT 4 MG TAB.RAPDIS. PO PRN (12:00)
[2022-02-12] MEDS ORDERED: ONDANSETRON PF 4 MG/2 ML VIAL. IVP PRN (12:00)
[2022-02-12 15:19] VITALS: BP 107/51
[2022-02-12] MEDS ORDERED: BISACODYL 10 MG SUPP.RECT. PR PRN (16:00)
[2022-02-12 19:30] VITALS: BP 120/52
[2022-02-12] MEDS: ATORVASTATIN CALCIUM 40 MG TABLET. PO SCH (21:32)
[2022-02-12 23:23] VITALS: BP 104/54
[2022-02-13] MEDS: traMADol 50 MG TABLET PO SCH ×3 (00:35→12:25)
[2022-02-13] MEDS: LEVOTHYROXINE 25 MCG TABLET. PO SCH (05:50)
[2022-02-13 05:54] LABS: HEMATOCRIT 32.4 % (36.0-47.0); HEMOGLOBIN 10.6 g/dL (12.0-15.5)
[2022-02-13 07:15] VITALS: BP 107/62
[2022-02-13] MEDS: ASPIRIN 325 MG TABLET PO SCH (08:15)
[2022-02-13] MEDS: ACETAMINOPHEN 500 MG TABLET PO SCH ×2 (08:15→13:47)
[2022-02-13] MEDS: GABAPENTIN 300 MG CAPSULE. PO SCH (08:16)
[2022-02-13] MEDS: SENNOSIDES/DOCUSATE 8.6/50MG TABLET. PO SCH (08:16)
[2022-02-13] MEDS: FERROUS SULFATE 325 MG TABLET. PO SCH (08:16)
[2022-02-13] MEDS: MULTIVITAMIN with MINERAL TABLET. PO SCH (08:16)
[2022-02-13] MEDS: LOSARTAN POTASSIUM 50 MG TABLET. PO SCH (08:19)
[2022-02-13] MEDS: IV NORMAL SALINE 1000ML BAG 1,000 ML IV SCH (08:19)
[2022-02-13 11:15] VITALS: BP 122/61
--- NOTE | 2022-02-13 12:39 | PN ---
DATE: 02/13/2022 She is postoperative day #2. I did see her on postoperative day #1 as well as today on postoperative day #2 for her left total knee replacement. The dressings are looking very good at this point, there is no significant drainage at all at this point, it appears to be dry and stable. Effusion is mild at this point. No significant swelling to the lower extremity. No signs or symptoms of active infection or DVT. No fevers or chills. Range of motion is already up to 90 degrees with full extension possible at this point. No instability is noted. She was progressing well with physical therapy today. I did observe her standing and doing some exercises and she is doing quite well. We will see how she does with her activities, possibly discharge today or tomorrow morning after further physical therapy depending on how she completes physical therapy today. Pain is well and controlled at this point. She will continue with DVT prophylaxis when she is discharged home with aspirin twice a day and we have also gone over continuation of physical therapy and all other aspects of activities and exercises to do at home. She will continue with the walker. I will see her back in 2 weeks, sooner if there are any questions, problems, or concerns of any kid. ROMAN DR: Obed TID: [id number]
[2022-02-13] MEDS ORDERED: ASPI325T8 PO (13:46)
[2022-02-13] MEDS ORDERED: OXYC5TAB4 PO (13:46)
[2022-02-13] MEDS ORDERED: FERR325T72 PO (13:46)
--- NOTE | 2022-02-13 13:56 | SNU/HH DC ---
DISCHARGE WITH HOME HEALTH DISCHARGE INFORMATION: Discharge Date: Feb 13, 2022 Final Diagnosis: knee replacement CODE STATUS: Code Status: Full HOME HEALTH: Face to Face: I certify this patient is under my care and that I, or a nurse practitioner or physician's expanded duty dental assistant working with me, had a face to face encounter that meets the physician face to face encounter requirements with this patient on []. Custodial For: Assess & Educate Safety RN For Eval/Treatment: Yes Physical Therapy For: Evalulation/Treatment Occupational Therapy For: Evaluation/Treatment Pt Meets Homebound Status: Extreme weakness w/ amb., Fatigue w/ amb., Limited distance walking POST DISCHARGE ORDERS: Activity Instructions for Disc: Activity as tolerated Weight Bearing Status after Di: As tolerated DIET AFTER DISCHARGE: Regular CERTIFICATION STATEMENT: Certification Statement: Certification Statement: Based on the above finding, I certify that this patient is confined to the home and needs intermittent fdc care, physical therapy and/or speech therapy, or continues to need occupational therapy.~ This patient is under my care, and I have initiated the establishment of the plan of care.~ This patient will be followed by myself or a community physician who will periodically review the plan of care. Home Meds Active Scripts Aspirin (ASPIRIN) 325 Mg Tablet, 325 MG PO DAILYWBKFT for anticoag for 30 Days, #30 TAB Prov:JULIÁN FLOREZ MD 02/13/22 Oxycodone Hcl (OXYCODONE HCL IMMED.RELEASE ) 5 Mg Tablet, 5 MG PO PRN Q4HRS PRN for MODERATE PAIN 4-6 for 10 Days, #20 TAB Prov:JULIÁN FLOREZ MD 02/13/22 Ferrous Sulfate (FEOSOL) 325 Mg Tablet, 325 MG PO BIDWMEALS for susan for 30 Days, #60 TAB Prov:JULIÁN FLOREZ MD 02/13/22 Reported Medications Gabapentin (GABAPENTIN) 600 Mg Tablet, 900 MG PO HS for NEUROGENIC PAIN, TAB 01/23/22 Gabapentin (GABAPENTIN) 600 Mg Tablet, 300 MG PO DAILY08 for NEUROGENIC PAIN, TAB 01/23/22 Atorvastatin Calcium (ATORVASTATIN CALCIUM) 40 Mg Tablet, 40 MG PO HS for FOR CHOLESTEROL, #30 TAB 0 Refills 01/23/22 Losartan/Hydrochlorothiazide (LOSARTAN-HCTZ 50-12.5 MG TAB) 1 Each Tablet, 1 EACH PO DAILY for BP CONTROL, TAB 01/23/22 Levothyroxine Sodium (SYNTHROID) 25 Mcg Tablet, 1 TAB PO DAILY, #30 TAB 5 Refills 04/16/16 Discontinued Reported Medications Celecoxib (CELEBREX) 200 Mg Capsule, 200 MG PO BID for PAIN CONTROL for 30 Days, CAP 0 Refills 01/23/22 JULIÁN FLOREZ MD Feb 13, 2022 13:56
[2022-02-13 15:13] VITALS: BP 108/55
--- NOTE | 2022-02-13 16:15 | NUR ---
Pt DC home in stable condition with belongings per wheelchair. SL removed, cath intact. DC instructions, follow up orders and medications reviewed. Patient denies having questions
--- NOTE | 2022-02-13 18:31 | PATHOLOGY ---
[facility] Accession Number: [id number] . 01 Material submitted: . knee - LEFT KNEE BONE AND TISSUE. Modifiers: left . 01 Clinical history: . LEFT KNEE PAIN LEFT TOTAL KNEE ARTHROPLASTY . 02 Diagnosis: Segments of bone and soft tissue, left total knee arthroplasty: - Advanced degenerative arthritis with focal subarticular bony sclerosis. (JPM:manoj; 02/13/2022) QMS 02/13/2022 0921 Local . 02 Electronically signed: . Matias Moreno MD, Pathologist NPI- [id number] . 01 Gross description: . The specimen is received in formalin, labeled "Peyton Clarke, left knee bone and tissue" and consists of multiple hard irregular bone fragments aggregating 17.5 x 13.6 x 1.8 cm with abundant attached fat and portions of meniscus. The articular surfaces are pacheco-pink, smooth and focally granular and display 3 areas of eburnation (ranging from 0.7 x 0.6 cm to 1.7 x 0.8 cm) and multiple areas of granular erosion (ranging from 1.5 x 1.5 to 1.7 x 1.4 cm). A focal area of articular surface softening and partial detachment (0.4 x 0.3 cm) is identified as well as osteophytic growths. Sectioning reveals unremarkable cut surfaces. Assurance Senior Manager sections are submitted in 2 cassettes following decalcification. ([place]; 02/11/2022) DKA/DKA 02/13/2022 0920 Local . 02 Pathologist provided ICD-10: M17.12 . 02 CPT . 380442, 270790 Specimen Comment: A courtesy copy of this report has been sent to [phone] Specimen Comment: Report sent to Performed at: 01 [facility] [address], [place] [id number] MD Hemant Rasmussen MD Phone: [phone] Performed at: 02 [facility] [address] [place], [place] [id number] MD Matias Moreno MD Phone: [phone]
--- NOTE | 2022-02-13 21:32 | PDOC3 ---
[facility]-Dis[facility] Summary Date of Admission: Date of Admission: Feb 11, 2022 Date of Discharge: Date of Discharge: Feb 13, 2022 Admission Diagnosis: Admitting Diagnosis: TKA Hospital Course: Hospital Course: Operative day 2, left total knee Obese, BMI 35 HTN Hypothyroid Dyslipidemia, Anxiety Glaucoma. Home meds Pain meds PRN Zofran PRN Home PT DVT prophylaxis Probable discharge tomorrow Full code 02/13 Patient seen and examined at bedside. Doing well. Given discharge cleared by Ortho. Will discharge home today which patient is very happy about. Great 30 minutes spent on this discharge. Disposition: Disposition/Orders: D/C to Home Activity: Activity: Resume previous activity Diet: Diet: Regular Medications: Home Meds Active Scripts Aspirin (ASPIRIN) 325 Mg Tablet, 325 MG PO DAILYWBKFT for anticoag for 30 Days, #30 TAB Prov:JULIÁN FLOREZ MD 02/13/22 Oxycodone Hcl (OXYCODONE HCL IMMED.RELEASE ) 5 Mg Tablet, 5 MG PO PRN Q4HRS PRN for MODERATE PAIN 4-6 for 10 Days, #20 TAB Prov:JULIÁN FLOREZ MD 02/13/22 Ferrous Sulfate (FEOSOL) 325 Mg Tablet, 325 MG PO BIDWMEALS for susan for 30 Days, #60 TAB Prov:JULIÁN FLOREZ MD 02/13/22 Reported Medications Gabapentin (GABAPENTIN) 600 Mg Tablet, 900 MG PO HS for NEUROGENIC PAIN, TAB 01/23/22 Gabapentin (GABAPENTIN) 600 Mg Tablet, 300 MG PO DAILY08 for NEUROGENIC PAIN, TAB 01/23/22 Atorvastatin Calcium (ATORVASTATIN CALCIUM) 40 Mg Tablet, 40 MG PO HS for FOR CHOLESTEROL, #30 TAB 0 Refills 01/23/22 Losartan/Hydrochlorothiazide (LOSARTAN-HCTZ 50-12.5 MG TAB) 1 Each Tablet, 1 EACH PO DAILY for BP CONTROL, TAB 01/23/22 Levothyroxine Sodium (SYNTHROID) 25 Mcg Tablet, 1 TAB PO DAILY, #30 TAB 5 Refills 04/16/16 Discontinued Reported Medications Celecoxib (CELEBREX) 200 Mg Capsule, 200 MG PO BID for PAIN CONTROL for 30 Days, CAP 0 Refills 01/23/22 Scheduled Aspirin (Aspirin), 325 MG PO DAILYWBKFT Atorvastatin Calcium (Atorvastatin Calcium), 40 MG PO HS, (Reported) Ferrous Sulfate (Feosol), 325 MG PO BIDWMEALS Gabapentin (Gabapentin), 300 MG PO DAILY08, (Reported) Gabapentin (Gabapentin), 900 MG PO HS, (Reported) Levothyroxine Sodium (Synthroid), 1 TAB PO DAILY, (Reported) Losartan/Hydrochlorothiazide (Losartan-Hctz 50-12.5 Mg Tab), 1 EACH PO DAILY, (Reported) Scheduled PRN Oxycodone Hcl (Oxycodone Hcl Immed.release ), 5 MG PO PRN Q4HRS PRN for MODERATE PAIN 4-6 Discontinued Medications Celecoxib (Celebrex), 200 MG PO BID, (Reported) Justicifation of Admission Dx: Justifications for Admission: Justification of Admission Dx: Yes (tka) JULIÁN FLOREZ MD Feb 13, 2022 21:32
== END 2022-02-13 13:42 | disposition home health service (06) | DRG 470 ==
LOC: SURG 07:25 → 4 NORTH 10:35
PROVIDERS: ADMIT Orthopaedic Surgery; ATTEND Orthopaedic Surgery
PROC: 0SRD0J9 Replacement of Left Knee Joint with Synthetic Substitute, Cemented, Open Approach (ICD-10-PCS; principal; 2022-02-11 09:00)
DX: M17.12 Unilateral primary osteoarthritis, left knee (principal); E03.9 Hypothyroidism, unspecified; E66.9 Obesity, unspecified; E78.5 Hyperlipidemia, unspecified; F41.9 Anxiety disorder, unspecified; H40.9 Unspecified glaucoma; I10 Essential (primary) hypertension; Z96.643 Presence of artificial hip joint, bilateral; Z20.822 Contact with and (suspected) exposure to COVID-19; Z68.34 Body mass index [BMI] 34.0-34.9, adult
CPT/HCPCS: 36415; 73560; 85014; 85018; 86850; 86900; 86901; A4213; A4223; A4930; A6550; C1713; C1776; J0171; J0690; J0780; J1100; J1170; J1885; J2250; J2270; J2405; J2704; J2710; J2795; J3010; J3490; J7030; 97116-GP; 97150-GP; 97530-GO; 97530-GP; 97535-GO; G0378